=== PATIENT | male | born 1970 | race Caucasian/White ===

== ENCOUNTER → 2019-10-13 | Day surgery (SDC) | payer MEDICAID ==
[2019-10-11 12:26] VITALS: BMI 33.5
[~2019-10-13] MED LIST: LACTATED RINGERS 1,000 ML IV SCH; LIDOCAINE 1% (10MG/ML) FOR IV START INTRADERMA PRN; MIDAZOLAM 2 MG/2 ML VIAL IV PRN; PROPOFOL 10 MG/ML 20 ML VIAL IV ONE
[2019-10-13 11:12] VITALS: TEMP 96.7
--- NOTE | 2019-10-13 12:00 | P.PCN ---
Date of Procedure: 10/13/19 Procedure(s) Performed: BRIEF HISTORY: Patient is a 81-year-old, pleasant, white male, scheduled for an upper endoscopy as a part of intermittent dysphagia to solids for the last 1 year duration. He denies any heartburn. He scheduled for an upper endoscopy with a possible patient today.. PROCEDURE PERFORMED: Esophagogastroduodenoscopy with biopsy and dilation. PREOPERATIVE DIAGNOSIS: Intermittent dysphagia to solids. IV sedation per anesthesia. PROCEDURE: After informed consent was obtained, the patient was brought into the endoscopy unit. IV sedation was administered by Anesthesia under continuous monitoring. Initially the Olympus GIF-140 video endoscope was inserted into the mouth. Esophagus intubated without any difficulty. It was gradually advanced into the stomach and duodenum and carefully examined. The bulb and the second part of the duodenum appeared normal. The scope at this time was withdrawn to the stomach, adequately insufflated with air, and upon careful examination, mucosa of the antrum, body, cardia and the fundus appeared normal. The scope was then withdrawn into the esophagus. Small sliding hiatal hernia Noted. The GE junction was located at 41 cm from the incisors. There was a distal esophageal Schatzki's ring identified which was dilated using 18 and 19 mm TTS balloon in a sequential fashion for 90 seconds. Findings there was mucosal there was oozing identified and hence further dilation was not performed. The mucosa in the mid and distal esophagus has longitudinal ridges and follow suspicious for eosinophilic esophagitis and multiple biopsies were done from this area. The esophagus appeared normal. There were no erosions or ulcerations seen and the patient tolerated the procedure well. IMPRESSION: 1.Distal esophageal Schatzki's ring status post balloon dilation using 18 and 19 mm TTS balloon for 90 seconds 2.Thickened distal esophageal folds with longitudinal ridges and furrows suspicious for eosinophilic esophagitis status post multiple biopsies. RECOMMENDATIONS: The findings of this examination were discussed with the patient as well as his family. He will remain on a clear liquid diet for lunch today. He'll be seen in office in 3-4 weeks.
[2019-10-13 12:04] VITALS: RESP 17
[2019-10-13 13:01] VITALS: BP 150/90; PULSE 88
== END ==
LOC: ORWHC2ENDO 10:45
PROVIDERS: ATTEND Internal Medicine Gastroenterology
DX: K20.0 Eosinophilic esophagitis (principal); K22.2 Esophageal obstruction; K44.9 Diaphragmatic hernia without obstruction or gangrene; I10 Essential (primary) hypertension; Z88.0 Allergy status to penicillin; Z79.899 Other long term (current) drug therapy; Z79.890 Hormone replacement therapy; Z98.890 Other specified postprocedural states
CPT/HCPCS: 88305; 43239; 43249; J2704; C1726; 43244

== ENCOUNTER → 2019-12-18 | Outpatient (CLI) | payer MEDICAID | END | disposition home or self-care (01) | LOC: LABWHC1 10:47 | PROVIDERS: ATTEND Family Medicine | DX: Z11.59 Encounter for screening for other viral diseases (principal) | CPT/HCPCS: U0003; C9803 ==

== ENCOUNTER → 2020-03-12 | Outpatient (CLI) | payer MEDICAID | END | disposition home or self-care (01) | LOC: LABWHC1 09:59 | PROVIDERS: ATTEND Family Medicine | DX: R05 Cough (principal) | CPT/HCPCS: 87502; U0003; C9803 ==

== ENCOUNTER → 2020-10-25 | Outpatient (CLI) | payer MEDICAID ==
--- NOTE | 2020-10-26 03:32 | MR ---
EXAMINATION TYPE: MR knee RT wo con DATE OF EXAM: 10/25/2020 COMPARISON: None HISTORY: Right knee pain, pain behind the knee, and painful kneecap. Images obtained of the right knee without contrast. Anterior and posterior cruciate ligaments are intact. There is small knee joint effusion. The medial and lateral menisci appear fairly normal. There is small oblique intrasubstance tear of the posterior horn of the medial meniscus without extension to the articular surface. The patella is intact. The c ollateral ligaments are intact. I see no bony destructive process. There is no evidence for fracture. There is no bone edema. Joint spaces are fairly normal. IMPRESSION: Small knee joint effusion. Minimal intrasubstance tear of the posterior horn of the medial meniscus.
== END | disposition home or self-care (01) ==
LOC: RADMRIMAIN 16:33
PROVIDERS: ATTEND Orthopaedic Surgery
DX: S83.241A Other tear of medial meniscus, current injury, right knee, initial encounter (principal); X58.XXXA Exposure to other specified factors, initial encounter

== ENCOUNTER 2022-02-20 08:39 | Day surgery (SDC) | payer MEDICAID ==
[2022-02-18 11:06] VITALS: BMI 33.6
[~2022-02-20 08:39] MED LIST changes: -LIDOCAINE 1% (10MG/ML) FOR IV START INTRADERMA PRN; -MIDAZOLAM 2 MG/2 ML VIAL IV PRN; -PROPOFOL 10 MG/ML 20 ML VIAL IV ONE
[2022-02-20 09:23] VITALS: RESP 18; TEMP 97
[2022-02-20] MEDS ORDERED: PROPOFOL 10 MG/ML 20 ML VIAL IV ONE (10:11)
--- NOTE | 2022-02-20 10:28 | P.PCN ---
Date of Procedure: 02/20/22 Procedure(s) Performed: BRIEF HISTORY: Patient is a 51-year-old pleasant white male scheduled for an elective colonoscopy as a part of screening for colorectal neoplasia. PROCEDURE PERFORMED: Colonoscopy with snare polypectomy. PREOPERATIVE DIAGNOSIS: Screening for colon cancer. IV sedation per Anesthesia. PROCEDURE: After informed consent was obtained, the patient, was brought into the endoscopy unit. IV sedation was administered by Anesthesia under continuous monitoring. Digital rectal examination was normal. Initially the Olympus CF-160 flexible video colonoscope was then inserted in the rectum, gradually advanced into the cecum without any difficulty. Careful examination was performed as the scope was gradually being withdrawn. Ileocecal valve and the appendiceal orifice were visualized and appeared normal. Prep was excellent. Mucosa of the cecum, ascending colon, transverse colon, appeared normal. In the descending colon there was a 7-8 mm sessile polyp removed by snare polypectomy. Rest of the descending colon, sigmoid colon, and rectum appeared normal. Retroflexion was performed in the rectum and no lesions were seen. The patient tolerated the procedure well. IMPRESSION: 7-8 mm descending colon polyp status post polypectomy Rest of the colon appeared normal RECOMMENDATIONS: Findings of this examination were discussed with the patient as well as his family. He was advised to follow with the biopsy results. If the biopsy reveals adenoma he can have a repeat colonoscopy in 5 years..
[2022-02-20 10:49] VITALS: BP 138/76; PULSE 78
== END 2022-02-20 10:59 | disposition home or self-care (01) ==
LOC: ORWHC2ENDO 08:39
PROVIDERS: ATTEND Internal Medicine Gastroenterology
DX: Z12.11 Encounter for screening for malignant neoplasm of colon (principal); D12.4 Benign neoplasm of descending colon; I10 Essential (primary) hypertension; K21.9 Gastro-esophageal reflux disease without esophagitis; Z79.899 Other long term (current) drug therapy; Z88.0 Allergy status to penicillin
CPT/HCPCS: 88305; 45385; J2704

== ENCOUNTER → 2022-02-24 | Outpatient (CLI) | payer MEDICAID ==
--- NOTE | 2022-02-24 10:41 | US ---
EXAMINATION TYPE: US abdomen complete DATE OF EXAM: 02/24/2022 COMPARISON: NONE CLINICAL HISTORY: R94.5 Abnormal results of liver function test. Elevated liver enzymes TECHNIQUE: Multiple sonographic images of the abdomen are obtained. FINDINGS: EXAM MEASUREMENTS: Liver Length: 16.1 cm Gallbladder Wall: 0.2 cm CBD: 0.3 cm Spleen: 10.2 cm Right Kidney: 11.8 x 6.0 x 5.6 cm Left Kidney: 13.1 x 5.9 x 5.7 cm Pancreas: Obscured by bowel gas Liver: Diffusely hyperechoic, very small area of focal fatty sparing = 1.7cm adjacent to the gallblad pallavi. Noncirrhotic morphology. Gallbladder: no evidence of stones. No pericholecystic fluid or wall thickening. Evidence for sonographic Grossman's sign: no CBD: appears wnl Spleen: wnl Right Kidney: no evidence of hydronephrosis . No solid mass or shadowing calculi. Left Kidney: no evidence of hydronephrosis . No solid mass or shadowing calculi. Upper IVC: wnl Abd Aorta: visualized portions appear wnl IMPRESSION: 1. No acute process. 2. Hepatic steatosis.
== END | disposition home or self-care (01) ==
LOC: RADUSWWP 06:48
PROVIDERS: ATTEND Family Medicine
DX: R94.5 Abnormal results of liver function studies (principal)
CPT/HCPCS: 76700

== ENCOUNTER → 2023-02-09 | Outpatient (CLI) | payer MEDICAID ==
[2023-02-09 15:26] LABS: Basophils # (A) 0.04 X 10*3/uL (0.00-0.10); Basophils % (A) 0.6 %; Eosinophils # (A) 0.26 X 10*3/uL (0.04-0.35); Eosinophils % (A) 3.7 %; HCT 47.5 % (39.6-50.0); HGB 15.3 d/dL (13.0-17.0); MCH 30.8 pg (27.0-32.0); MCHC 32.2 d/dL (32.0-37.0); MCV 95.6 FL (80.0-97.0); Mean Platelet Volume 11.8 FL (9.5-12.2); Monocytes # (A) 0.75 X 10*3/uL (0.20-1.00); Monocytes % (A) 10.6 %; NRBC Per 100 WBC 0 X 10*3/uL (0.00-0.01); Neutrophils # (A) 4.31 X 10*3/uL (1.80-7.70); Neutrophils % (A) 60.8 %; Platelet Count 174 X 10*3/uL (140-440); RBC 4.97 X 10*6/uL (4.40-5.60); RDW 14.2 % (11.5-14.5); WBC 7.08 X 10*3/uL (4.50-10.00)
[2023-02-09 16:06] LABS: Blood Urea Nitrogen 16.7 mg/dL (9.0-27.0); Calcium 9.9 mg/dL (8.7-10.3); Chloride 105 mmol/L (96-109); Glucose 106 mg/dL (70-110); Sodium 143 mmol/L (135-145)
== END | disposition home or self-care (01) ==
LOC: LABPAT 07:45
PROVIDERS: ATTEND Orthopaedic Surgery
DX: Z01.812 Encounter for preprocedural laboratory examination (principal); M75.42 Impingement syndrome of left shoulder
CPT/HCPCS: 36415; 80048; 85025; 93005